=== PATIENT | female | born 1970 | race Caucasian/White ===

== ENCOUNTER 2018-10-22 09:35 | Emergency (ER) | payer OTHER ==
[~2018-10-22] VITALS: Ht 167.6 cm; Wt 70.8 kg
[2018-10-22] MEDS ORDERED: VITAMIN B-1100 M1 PO (10:04)
[2018-10-22] MEDS ORDERED: MERCAPTOPURINE50 MG PO (10:04)
[2018-10-22] MEDS ORDERED: XANAX 0.5 MG0.5 MG PO (10:04)
[2018-10-22] MEDS ORDERED: PROTONIX 20 MG20 M1 PO (10:04)
[2018-10-22] MEDS ORDERED: FLEXERIL PO (11:45)
[2018-10-22] MEDS ORDERED: HYDROCODONE-AP1 EAC6 PO (11:45)
[2018-10-22] MEDS ORDERED: NAPROSYN500 MG PO (11:45)
[2018-10-22] MEDS ORDERED: ZOFRAN ODT4 MG PO (11:45)
[2018-10-22 12:00] VITALS: BP 111/64
== END 2018-10-22 12:01 | disposition home or self-care (01) ==
LOC: M.ERS 09:35
DX: S06.0X0A Concussion without loss of consciousness, initial encounter (principal); M25.512 Pain in left shoulder; M25.552 Pain in left hip; F32.9 Major depressive disorder, single episode, unspecified; F41.9 Anxiety disorder, unspecified; Z90.710 Acquired absence of both cervix and uterus; F17.200 Nicotine dependence, unspecified, uncomplicated; W01.0XXA Fall on same level from slipping, tripping and stumbling without subsequent striking against object, initial encounter; Y93.89 Activity, other specified; Y92.89 Other specified places as the place of occurrence of the external cause; Y99.8 Other external cause status